=== PATIENT | female | born 1975 | race Caucasian/White ===

== ENCOUNTER 2022-09-02 12:12 | Outpatient (REF) | payer BC, SELFPAY ==
[2022-09-02 14:35] LABS: Free T4 (Free Thyroxine) 0.99 ng/dL (0.71-1.85); Thyroid Stimulating Hormone 4.12 uIU/mL (0.32-4.0)
[2022-09-03 18:02] LABS: Thyroglobulin Antibodies 8 IU/mL (< or = 1); Thyroid Peroxidase Antibodies 315 IU/mL (<9)
== END 2022-09-02 12:13 | disposition home or self-care (01) ==
LOC: HO.10HDL 12:12
PROVIDERS: Visit Provider Internal Medicine
DX: E03.9 Hypothyroidism, unspecified (principal); E04.2 Nontoxic multinodular goiter
CPT/HCPCS: 36415; 84439; 84443; 86376; 86800

== ENCOUNTER 2022-10-26 07:59 | Outpatient (REF) | payer BC, SELFPAY ==
[2022-10-26 09:08] LABS: Free T4 (Free Thyroxine) 0.99 ng/dL (0.71-1.85); Thyroid Stimulating Hormone 3.37 uIU/mL (0.32-4.0)
== END 2022-10-26 08:00 | disposition home or self-care (01) ==
LOC: HO.LAB 07:59
PROVIDERS: PCP Physician Assistant Medical; Visit Provider Internal Medicine
DX: E03.9 Hypothyroidism, unspecified (principal); E04.2 Nontoxic multinodular goiter
CPT/HCPCS: 36415; 84439; 84443

== ENCOUNTER 2023-09-28 15:01 | Outpatient (REF) | payer BC, SELFPAY ==
--- NOTE | ~2023-09-28 | US_ITS ---
EXAMINATION: US THYROID CLINICAL INFORMATION: Nontoxic multinodular goiter. COMPARISON: None available. TECHNIQUE: Linear transducer guerin-scale and color Doppler examination with attention to the region of the thyroid. FINDINGS: SIZE: Measurements of the thyroid lobes and nodules are given in sagittal, anteroposterior and transverse dimensions respectively. Right Thyroid Lobe: 4.2 x 1.6 x 1.8 cm, volume 6.5 mL. Parenchyma: The gland echotexture is mildly heterogeneous. Thyroid vascularity is normal. Left Thyroid Lobe: 3.9 x 1.5 x 1.9 cm, volume 5.8 mL. Parenchyma: The gland echotexture is heterogeneous. Thyroid vascularity is normal. Isthmus: 0.1 cm in maximum AP dimension. Estimated total number of nodules greater than or equal to 1 cm: 1. Community Development Worker nodules are described as follows: 1. Location: Right superior. Size: 1.1 x 0.5 x 0.6 cm, volume 0.16 mL. Nodule characteristics: Composition: Cystic(0). ACR TI-RADS total points: 0 ACR TI-RADS category: 1 2. Location: Right mid/lateral. Size: 0.7 x 0.6 x 0.6 cm, volume 0.13 mL. Nodule characteristics: Composition: Cystic(0). ACR TI-RADS total points: 0 ACR TI-RADS category: 1 NODES: No lymphadenopathy is seen in the tissue surrounding the thyroid gland. US/US thyroid IMPRESSION: TR 1 thyroid nodules, largest measured 1.1 cm. Diffusely heterogeneous thyroid gland, left lobe greater than right. ACR TI-RADS RECOMMENDATION REFERENCE: Ultrasound-guided fine-needle aspiration, followup ultrasound, no further followup. * TR1 (0 point) and TR2 (2 points): No FNA or follow up. * TR3 (3 points): FNA if more than or equal to 2.5 cm in maximum dimension, followup ultrasound in 1, 3 and 5 years if 1.5 to 2.4 cm in maximum dimension. * TR4 (4-6 points): FNA if more than or equal to 1.5 cm in maximum dimension, followup ultrasound in 1, 2, 3 and 5 years if 1 to 1.4 cm in maximum dimension. * TR5 (more than or equal to 7 points): FNA if more than or equal to 1 cm in maximum dimension, followup ultrasound every year for 5 years if 0.5 to 0.9 cm in maximum dimension. * TR3, TR4 or TR5 nodules that are below the size threshold for followup receive no followup.
== END 2023-09-28 15:02 | disposition home or self-care (01) ==
LOC: HO.US 15:01
PROVIDERS: PCP Physician Assistant Medical; Visit Provider Internal Medicine Endocrinology, Diabetes & Metabolism
DX: E04.2 Nontoxic multinodular goiter (principal)
CPT/HCPCS: 76536

== ENCOUNTER 2023-11-29 09:56 | Outpatient (REF) | payer BC, SELFPAY ==
[2023-11-29 11:52] LABS: Thyroid Stimulating Hormone 3.12 uIU/mL (0.32-4.0)
== END 2023-11-29 09:57 | disposition home or self-care (01) ==
LOC: HO.LAB 09:56
PROVIDERS: PCP Physician Assistant Medical; Visit Provider Internal Medicine Endocrinology, Diabetes & Metabolism
DX: E03.9 Hypothyroidism, unspecified (principal); E04.2 Nontoxic multinodular goiter
CPT/HCPCS: 36415; 84439; 84443

== ENCOUNTER 2023-11-29 14:18 | Outpatient (AMB) | payer BC, SELFPAY ==
--- NOTE | 2023-11-29 14:22 | MHC.OFFVIS ---
Intake Vital Signs 11/29/23 14:24 Height 5 ft 3.5 in Weight 263 lb 0.183 oz BMI 45.9 BP 114/72 Blood Pressure Location Lt brachial Position Sitting Pulse 86 Pulse Source Pulse Oximeter Intake Visit Reasons: F/U NTMNG Intake Note: Patient presents today for NTMNG follow up visit, last seen by Dr. Byrne on 09/02/2022. Transition Teacher Required: No Accompanied by: Spouse Allergies No Known Allergies Allergy (Verified 11/29/23 14:27) HPI HPI Comments History of Present Illness Details 48 YO F with PMHx Hypothyroidism and a NTMNG who is seen in consultation for multinodular thyroid at the request of PCP.. The patient last saw Dr. Byrne on 09/02/2022 She had a recent thyroid US by her PCP which revealed multiple subcentimeter cystic appearing nodules, and 1 subcentimeter spongiform nodule. She was subsequently referred to Endocrinology. She has a long history of hypothyroidism, and is currently levothyroxine 100 mcg PO daily. She reports poor compliance with this, taking it at most 5 days per week. She does mention dysphagia, but denies any other compressive symptoms. She reports weight gain and dry skin, but denies any other symptoms of hyper or hypothyroidism. Denies any history of head or neck irradiation. Denies any family history of thyroid cancer. Her Mother and Sister both have thyroid nodules. Labs: No recent pertinent labs [facility] Medical History (Updated 09/02/22 @ 11:44 by Sagrario Garcia DO) Hypothyroidism Multinodular thyroid Surgical History (Updated 09/02/22 @ 11:14 by LUIS ENRIQUE Wilson) Hx of tubal ligation Hx of eye surgery Family History (Updated 09/02/22 @ 11:15 by LUIS ENRIQUE Wilson) Father Heart disease Mother Thyroid nodule Social History (Updated 09/02/22 @ 11:15 by LUIS ENRIQUE Wilson) Alcohol intake: current Alcohol intake frequency: does not drink Patient Tobacco Use Status: Never used Tobacco Physical Exam Const Other: Thyroid gland is normal size weighs about 15 g. 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 She is currently replaced on 100 mcg levothyroxine. She appears to be clinically and biochemically euthyroid. Plan is to continue the current therapy. At this point, patient returned to the care of her primary care provider and back to endocrinology as needed. Perhaps a follow-up thyroid ultrasound can be done about 2-3 years time by the patient's primary care provider to track the size of the subcentimeter nodules Coding Level of Care Code Est Pt Level 3 (30535) Diagnoses Hypothyroidism E03.9
[2023-11-29 14:24] VITALS: BP 114/72; PULSE 86; BMI 45.9
== END 2023-11-29 14:58 | disposition home or self-care (01) ==
PROVIDERS: PCP Physician Assistant Medical; Visit Provider Internal Medicine Endocrinology, Diabetes & Metabolism
DX: E03.9 Hypothyroidism, unspecified (principal)
CPT/HCPCS: 99213